=== PATIENT | female | born 1940 | race Caucasian/White ===

== ENCOUNTER 2018-10-23 07:30 | Emergency (ER) | payer MEDICARE, OTHER ==
--- NOTE | 2018-10-23 07:46 | EDM.PDOC ---
ED HPI GENERAL MEDICAL PROBLEM - General Chief Complaint: Cardiovascular Problem Stated Complaint: SOB Time Seen by Provider: 10/23/18 07:43 - History of Present Illness INITIAL COMMENTS - FREE TEXT/NARRATIVE: HISTORY AND PHYSICAL: History of present illness: Patient is 78-year-old white female with extensive cardiac history including pacemaker and AICD who also has history of significant mitral valve disease for which surgical treatment has been suggested she is in the process of follow-up appointment for further evaluation and consideration. She presents today with concern of shortness of breath this has been progressively worse over last several weeks and was associated with chest tightness which was new this morning 's chest tightness has resolved she continues with her baseline shortness of breath with limited activity due to exertional dyspnea. Review of systems: As per history of present illness and below otherwise all systems reviewed and negative. Past medical history: As per history of present illness and as reviewed below otherwise noncontributory. Surgical history: As per history of present illness and as reviewed below otherwise noncontributory. Social history: No reported history of drug or alcohol abuse. Family history: As per history of present illness and as reviewed below otherwise noncontributory. Physical exam: HEENT: Atraumatic, normocephalic, pupils reactive, negative for conjunctival pallor or scleral icterus, mucous membranes moist, throat clear, neck supple, nontender, trachea midline. Lungs: Slightly diminished basilar crackles noted, breath sounds equal bilaterally, chest nontender. Heart: S1S2, irregular Abdomen: Soft, nondistended, nontender. Negative for masses or hepatosplenomegaly. Negative for costovertebral tenderness. Pelvis: Stable nontender. 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: Deferred. Rectal: Deferred. Extremities: Atraumatic, negative for cords or calf pain. Neurovascular unremarkable. Neuro: Awake, alert, oriented. Cranial nerves II through XII unremarkable. Cerebellum unremarkable. Motor and sensory unremarkable throughout. Exam nonfocal. Diagnostics: CBC CMP troponin PT/INR chest x-ray EKG BNP Therapeutics: IV O2 monitor Impression: #1 chest pain #2 dyspnea #3 history of mitral valve disease Definitive disposition and diagnosis as appropriate pending reevaluation and review of above. - Related Data Allergies Allergy/AdvReac Type Severity Reaction Status Date / Time meperidine HCl [From Demerol] Allergy Itching Verified 10/23/18 07:35 Home Meds: Home Meds Aspirin 81 mg PO DAILY 10/23/18 [History] Calcium Carb/D3/Magnesium/Zinc [Mzdiyxj-Ojx-Gmyg-Vit D] 1 tab PO BID 10/23/18 [ History] Carvedilol [Coreg] 18.75 mg PO BID 10/23/18 [History] Furosemide 40 mg PO DAILY 10/23/18 [History] Insulin Detemir [Levemir Flextouch] 35 units INJECT BEDTIME 10/23/18 [History] Insulin Lispro [Humalog Kwikpen U-100] 5 - 8 units INJECT TID 10/23/18 [History] Telmisartan 20 mg PO DAILY 10/23/18 [History] atorvaSTATin [Lipitor] 40 mg PO DAILY 10/23/18 [History] Past Medical History HEENT History: Reports: Impaired Vision, Other (See Below) Other HEENT History: wears galsses Cardiovascular History: Reports: Arrhythmia Respiratory History: Reports: None Gastrointestinal History: Reports: None 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 History: Reports: 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 Musculoskeletal History: Reports: None Neurological History: Reports: None Psychiatric History: Reports: None Endocrine/Metabolic History: Reports: None Hematologic History: Reports: None Immunologic History: Reports: None Oncologic (Cancer) History: Reports: Non-Hodgkin's Lymphoma Dermatologic History: Reports: None - Infectious Disease History Infectious Disease History: Reports: Chicken Pox, Measles - Past Surgical History Head Surgeries/Procedures: Reports: None HEENT Surgical History: Reports: None Cardiovascular Surgical History: Reports: Pacer Respiratory Surgical History: Reports: None GI Surgical History: Reports: None Female Surgical History: Reports: None Endocrine Surgical History: Reports: None Neurological Surgical History: Reports: None Musculoskeletal Surgical History: Reports: None Oncologic Surgical History: Reports: None Dermatological Surgical History: Reports: None Social & Family History - Family History Family Medical History: Noncontributory - Tobacco Use Smoking Status *Q: Never Smoker Second Hand Smoke Exposure: No - Caffeine Use Caffeine Use: Reports: None - Recreational Drug Use Recreational Drug Use: No ED ROS GENERAL - Review of Systems Review Of Systems: ROS reveals no pertinent complaints other than HPI. ED EXAM, GENERAL - Physical Exam Exam: See Below (See dictation) Course - Vital Signs Last Recorded V/S: Last Vital Signs Temp 36.2 C 10/23/18 07:35 Pulse 80 10/23/18 09:04 Resp 18 10/23/18 09:04 BP 184/77 H 10/23/18 09:04 Pulse Ox 98 10/23/18 09:04 - Orders/Labs/Meds Orders: Active Orders 24 hr Category Date Time Status Cardiac Monitoring [RC] . DIRECTED Care 10/23/18 07:48 Active EKG Documentation Completion [RC] STAT Care 10/23/18 07:48 Active Oxygen Therapy [RC] ASDIRECTED Care 10/23/18 07:48 Active Pulse Oximetry [RC] ASDIRECTED Care 10/23/18 07:48 Active UA RFX BRITTANY AND CULT IF INDIC [URIN] Stat Lab 10/23/18 07:48 Ordered Sodium Chloride 0.9% [Saline Flush] Med 10/23/18 07:48 Active 10 ml FLUSH ASDIRECTED PRN Sodium Chloride 0.9% [Saline Flush] Med 10/23/18 07:48 Active 2.5 ml FLUSH ASDIRECTED PRN Saline Lock Insert [OM.PC] Stat Oth 10/23/18 07:48 Ordered Medication Orders Sodium Chloride (Saline Flush) 10 ml FLUSH ASDIRECTED PRN PRN Reason: Keep Vein Open Sodium Chloride (Saline Flush) 2.5 ml FLUSH ASDIRECTED PRN PRN Reason: Keep Vein Open Labs: Laboratory Tests 10/23/18 10/23/18 10/23/18 Range/Units 07:40 07:40 07:40 WBC 7.47 (4.0-11.0) K/uL RBC 2.81 L (4.30-5.90) M/uL Hgb 8.5 L (12.0-16.0) g/dL Hct 25.6 L (36.0-46.0) % MCV 91.1 (80.0-98.0) fL MCH 30.2 (27.0-32.0) pg MCHC 33.2 (31.0-37.0) g/dL RDW Std Deviation 55.2 (28.0-62.0) fl RDW Coeff of Naida 17 H (11.0-15.0) % Plt Count 199 (150-400) K/uL MPV 9.60 (7.40-12.00) fL Neut % (Auto) 59.2 (48.0-80.0) % Lymph % (Auto) 29.2 (16.0-40.0) % Wilcox % (Auto) 7.4 (0.0-15.0) % Eos % (Auto) 4.1 (0.0-7.0) % Baso % (Auto) 0.1 (0.0-1.5) % Neut # (Auto) 4.4 (1.4-5.7) K/uL Lymph # (Auto) 2.2 (0.6-2.4) K/uL Wilcox # (Auto) 0.6 (0.0-0.8) K/uL Eos # (Auto) 0.3 (0.0-0.7) K/uL Baso # (Auto) 0.0 (0.0-0.1) K/uL Nucleated RBC % 0.0 /100WBC Nucleated RBCs # 0 K/uL Sodium 141 (136-145) mmol/L Potassium 3.8 (3.5-5.1) mmol/L Chloride 104 (98-107) mmol/L Carbon Dioxide 27.4 (21.0-32.0) mmol/L BUN 52 H (7.0-18.0) mg/dL Creatinine 2.4 H (0.6-1.0) mg/dL Est Cr Clr Drug Dosing 16.24 mL/min Estimated GFR (MDRD) 19.6 ml/min Glucose 88 (74-106) mg/dL Calcium 9.7 (8.5-10.1) mg/dL Total Bilirubin 0.6 (0.2-1.0) mg/dL AST 13 L (15-37) IU/L ALT 18 (14-63) IU/L Alkaline Phosphatase 107 (46-116) U/L Troponin I < 0.050 (0.000-0.056) ng/mL B-Natriuretic Peptide 870 H (<100) PG/ML Total Protein 6.7 (6.4-8.2) g/dL Albumin 3.2 L (3.4-5.0) g/dL Globulin 3.5 (2.6-4.0) g/dL Albumin/Globulin Ratio 0.9 (0.9-1.6) Meds: Medications Generic Name Dose Route Start Last Admin Trade Name Freq PRN Reason Stop Dose Admin Sodium Chloride 10 ml 10/23/18 07:48 Saline Flush FLUSH ASDIRECTED PRN Keep Vein Open Sodium Chloride 2.5 ml 10/23/18 07:48 Saline Flush FLUSH ASDIRECTED PRN Keep Vein Open Discontinued Medications Generic Name Dose Route Start Last Admin Trade Name Freq PRN Reason Stop Dose Admin Furosemide 20 mg 10/23/18 07:50 10/23/18 08:03 Lasix IVPUSH 10/23/18 07:51 20 mg NOW ONE Administration Nitroglycerin 1 gm 10/23/18 07:50 10/23/18 08:06 Nitro-Bid 2% TOP 10/23/18 07:51 1 gm ONETIME ONE Administration Departure - Departure Time of Disposition: 09:05 Disposition: DC/Tfer to Acute Hospital 02 Reason for Transfer *Q: Other Condition: Fair Clinical Impression: Chest pain, Dyspnea, Mitral valve disease Referrals: PCP,Unknown [Primary Care Provider] - Forms: ED Department Discharge - My Orders Last 24 Hours: My Active Orders 10/23/18 07:48 Cardiac Monitoring [RC] . DIRECTED EKG Documentation Completion [RC] STAT Oxygen Therapy [RC] ASDIRECTED Pulse Oximetry [RC] ASDIRECTED UA RFX BRITTANY AND CULT IF INDIC [URIN] Stat Sodium Chloride 0.9% [Saline Flush] 10 ml FLUSH ASDIRECTED PRN Sodium Chloride 0.9% [Saline Flush] 2.5 ml FLUSH ASDIRECTED PRN Saline Lock Insert [OM.PC] Stat - Assessment/Plan Last 24 Hours: My Active Orders 10/23/18 07:48 Cardiac Monitoring [RC] . DIRECTED EKG Documentation Completion [RC] STAT Oxygen Therapy [RC] ASDIRECTED Pulse Oximetry [RC] ASDIRECTED UA RFX BRITTANY AND CULT IF INDIC [URIN] Stat Sodium Chloride 0.9% [Saline Flush] 10 ml FLUSH ASDIRECTED PRN Sodium Chloride 0.9% [Saline Flush] 2.5 ml FLUSH ASDIRECTED PRN Saline Lock Insert [OM.PC] Stat
[2018-10-23] MEDS ORDERED: Sodium Chloride 0.9% 2.5 ML Syringe FLUSH PRN (07:48)
[2018-10-23] MEDS ORDERED: Sodium Chloride 0.9% 10 ML Syringe FLUSH PRN (07:48)
[2018-10-23] MEDS ORDERED: Nitroglycerin 2% Oint 1 GM UD Packet TOP ONE (07:50)
[2018-10-23] MEDS ORDERED: Furosemide 40 MG/4 ML VIAL IVPUSH ONE (07:50)
[2018-10-23 08:12] LABS: CHLORIDE,CL 104 mmol/L (98-107); SODIUM,NA 141 mmol/L (136-145)
--- NOTE | 2018-10-23 09:02 | CR ---
INDICATION: Shortness of breath. TECHNIQUE: Portable chest 1 view. COMPARISON: None. FINDINGS: There is a left subclavian dual-chamber AICD in place. The cardiac silhouette is mildly enlarged with pulmonary vascular congestion. Minimal interstitial edema is evident as well. No airspace consolidation is seen. There is a left pleural effusion. IMPRESSION: Vascular congestion with interstitial edema suggesting CHF. Small left pleural effusion. Dictated by Edgar Saleh MD @ Oct 23 2018 8:58AM Signed by Dr. Edgar Saleh @ Oct 23 2018 8:59AM
== END 2018-10-23 10:07 ==
LOC: MW.ED 07:30
DX: I05.9 Rheumatic mitral valve disease, unspecified (principal); R07.9 Chest pain, unspecified; Z88.8 Allergy status to other drugs, medicaments and biological substances; Z79.899 Other long term (current) drug therapy; Z79.82 Long term (current) use of aspirin; Z95.810 Presence of automatic (implantable) cardiac defibrillator
CPT/HCPCS: 36415; 71045; 80053; 81001; 83880; 84484; 85025; 93005; 96374; 99285; A9270; J1940

== ENCOUNTER 2018-11-23 13:37 | Emergency (ER) | payer MEDICARE, OTHER ==
[2018-11-23] MEDS ORDERED: Acetaminophen/HYDROcodone 325-5 MG Tab PO ONE (13:56)
--- NOTE | 2018-11-23 14:06 | EDM.PDOC ---
ED HPI GENERAL MEDICAL PROBLEM - General Chief Complaint: Back Pain or Injury Stated Complaint: LOWER BACK PAIN Time Seen by Provider: 11/23/18 13:43 - History of Present Illness INITIAL COMMENTS - FREE TEXT/NARRATIVE: HISTORY AND PHYSICAL: History of present illness: Patient is 78-year-old white female history of multiple myeloma with chronic renal failure who presents with a concern of chronic back pain with acute exacerbation she's has an appointment with her oncologist. She is scheduled for renal dialysis and was concerned about something stronger for pain so she could tolerate the sitting for 4 hours. She denies any numbness weakness or other concern. Review of systems: As per history of present illness and below otherwise all systems reviewed and negative. Past medical history: As per history of present illness and as reviewed below otherwise noncontributory. Surgical history: As per history of present illness and as reviewed below otherwise noncontributory. Social history: No reported history of drug or alcohol abuse. Family history: As per history of present illness and as reviewed below otherwise noncontributory. Physical exam: HEENT: Atraumatic, normocephalic, pupils reactive, negative for conjunctival pallor or scleral icterus, mucous membranes moist, throat clear, neck supple, nontender, trachea midline. Lungs: Clear to auscultation, breath sounds equal bilaterally, chest nontender. Heart: S1S2, regular, negative for clicks, rubs, or JVD. Abdomen: Soft, nondistended, nontender. Negative for masses or hepatosplenomegaly. Negative for costovertebral tenderness. Pelvis: Stable nontender. 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: Deferred. Rectal: Deferred. Extremities: Atraumatic, negative for cords or calf pain. Neurovascular unremarkable. Neuro: Awake, alert, oriented. Cranial nerves II through XII unremarkable. Cerebellum unremarkable. Motor and sensory unremarkable throughout. Exam nonfocal. Back: Patient's without vertebral body or point tenderness motor and sensory rhythm. Extremities are unremarkable Diagnostics: Deferred Therapeutics: [place] 5 mg by mouth Impression: #1 chronic back pain with acute exacerbation #2 history of chronic renal failure #3 history of multiple myeloma Definitive disposition and diagnosis as appropriate pending reevaluation and review of above. Back Pain Score (Numeric/FACES): 10 - Related Data Allergies Allergy/AdvReac Type Severity Reaction Status Date / Time meperidine HCl [From Demerol] Allergy Itching Verified 10/23/18 07:35 Home Meds: Home Meds Aspirin 81 mg PO DAILY 10/23/18 [History] Calcium Carb/D3/Magnesium/Zinc [Czehbsp-Mmv-Jrpe-Vit D] 1 tab PO BID 10/23/18 [ History] Carvedilol [Coreg] 18.75 mg PO BID 10/23/18 [History] Furosemide 40 mg PO DAILY 10/23/18 [History] Insulin Detemir [Levemir Flextouch] 35 units INJECT BEDTIME 10/23/18 [History] Insulin Lispro [Humalog Kwikpen U-100] 5 - 8 units INJECT TID 10/23/18 [History] Telmisartan 20 mg PO DAILY 10/23/18 [History] atorvaSTATin [Lipitor] 40 mg PO DAILY 10/23/18 [History] Past Medical History HEENT History: Reports: Impaired Vision, Other (See Below) Other HEENT History: wears galsses Cardiovascular History: Reports: Arrhythmia Respiratory History: Reports: None Gastrointestinal History: Reports: None 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 History: Reports: None 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 Musculoskeletal History: Reports: None Neurological History: Reports: None Psychiatric History: Reports: None Endocrine/Metabolic History: Reports: None Hematologic History: Reports: None Immunologic History: Reports: None Oncologic (Cancer) History: Reports: Non-Hodgkin's Lymphoma, Other (See Below) Other Oncologic History: possible multiple myeloma Dermatologic History: Reports: None - Infectious Disease History Infectious Disease History: Reports: Chicken Pox, Measles - Past Surgical History Head Surgeries/Procedures: Reports: None HEENT Surgical History: Reports: None Cardiovascular Surgical History: Reports: Pacer Respiratory Surgical History: Reports: None GI Surgical History: Reports: None Female Surgical History: Reports: None Endocrine Surgical History: Reports: None Neurological Surgical History: Reports: None Musculoskeletal Surgical History: Reports: None Oncologic Surgical History: Reports: None Dermatological Surgical History: Reports: None Social & Family History - Family History Family Medical History: Noncontributory - Tobacco Use Smoking Status *Q: Never Smoker - Caffeine Use Caffeine Use: Reports: None - Recreational Drug Use Recreational Drug Use: No ED ROS GENERAL - Review of Systems Review Of Systems: ROS reveals no pertinent complaints other than HPI. ED EXAM, GENERAL - Physical Exam Exam: See Below (See dictation) Course - Vital Signs Last Recorded V/S: Last Vital Signs Temp 36.6 C 11/23/18 13:56 Pulse 83 11/23/18 13:56 Resp 16 11/23/18 13:56 BP 140/48 L 11/23/18 13:56 Pulse Ox 95 11/23/18 13:56 - Orders/Labs/Meds Meds: Medications Discontinued Medications Generic Name Dose Route Start Last Admin Trade Name Basim PRN Reason Stop Dose Admin Hydrocodone Bitart/Acetaminophen 1 tab 11/23/18 13:56 [place] 325-5 Mg PO 11/23/18 13:57 ONETIME ONE Departure - Departure Time of Disposition: 14:05 Disposition: Home, Self-Care 01 Condition: Good Clinical Impression: Chronic back pain, History of multiple myeloma, Chronic renal failure - Discharge Information Referrals: Eduin Reyes MD [Primary Care Provider] - Additional Instructions: The following information is given to patients seen in the emergency department who are being discharged to home. This information is to outline your options for follow-up care. We provide all patients seen in our emergency department with a follow-up referral. The need for follow-up, as well as the timing and circumstances, are variable depending upon the specifics of your emergency department visit. If you don't have a primary care physician on staff, we will provide you with a referral. We always advise you to contact your personal physician following an emergency department visit to inform them of the circumstance of the visit and for follow-up with them and/or the need for any referrals to a consulting specialist. The emergency department will also refer you to a specialist when appropriate. This referral assures that you have the opportunity for followup care with a specialist. All of these measure are taken in an effort to provide you with optimal care, which includes your followup. Under all circumstances we always encourage you to contact your private physician who remains a resource for coordinating your care. When calling for followup care, please make the office aware that this follow-up is from your recent emergency room visit. If for any reason you are refused follow-up, please contact the [facility] emergency department at and asked to speak to the emergency department charge nurse. Follow-up as scheduled dialysis as scheduled [place] as prescribed and return as needed as discussed
== END 2018-11-23 14:42 | disposition home or self-care (01) ==
LOC: MW.ED 13:37
DX: M54.5 Low back pain (principal); G89.29 Other chronic pain; N18.9 Chronic kidney disease, unspecified; Z79.82 Long term (current) use of aspirin; Z79.4 Long term (current) use of insulin; Z88.5 Allergy status to narcotic agent; Z85.79 Personal history of other malignant neoplasms of lymphoid, hematopoietic and related tissues
CPT/HCPCS: 99283; A9270

== ENCOUNTER 2018-12-09 16:32 | Emergency (ER) | payer MEDICARE, OTHER ==
[2018-12-09] MEDS ORDERED: Sodium Chloride 0.9% 2.5 ML Syringe FLUSH PRN (16:33)
[2018-12-09] MEDS ORDERED: Sodium Chloride 0.9% 10 ML Syringe FLUSH PRN (16:33)
--- NOTE | 2018-12-09 17:12 | EDM.PDOC ---
ED HPI GENERAL MEDICAL PROBLEM - General Chief Complaint: Chest Pain Stated Complaint: CHEST PAINS/SOB Time Seen by Provider: 12/09/18 16:33 Source of Information: Reports: Patient History Limitations: Reports: No Limitations - History of Present Illness INITIAL COMMENTS - FREE TEXT/NARRATIVE: HISTORY AND PHYSICAL: History of present illness: Patient is a 78-year-old female presents to the ED today with concern of chest pain episode. Patient states she was in dialysis when she began to experience a sharp sensation in her chest that lasted a few seconds. She stated this occurred 2 different times. Following the first. She states she has not had any episodes since dialysis. Currently in the ED she denies chest pain. She states that when the sharp sensation that occurs she had some shortness of breath but that quickly subsided but the chest pain. Patient is on immunosuppression medications and chemotherapy. Patient denies fever, chills, or cough. Denies headache, neck stiff ness, change in vision, syncope, or near syncope. Denies nausea, vomiting, abdominal pain, diarrhea, constipation, or dysuria. Has not noted any blood in urine or stool. Patient has been eating and drinking appropriately. Patient has a history of multiple myeloma of the kidneys and spine, congestive heart failure s /p pacemaker, mitral valve regurgitation, anemia, and end-stage renal disease. Review of systems: As per history of present illness and below otherwise all systems reviewed and negative. Past medical history: As per history of present illness and as reviewed below otherwise noncontributory. Surgical history: As per history of present illness and as reviewed below otherwise noncontributory. Social history: See social history for further information Family history: As per history of present illness and as reviewed below otherwise noncontributory. Physical exam: General: Patient is alert, oriented, and in no acute distress. She is laying comfortably on exam table. HEENT: Atraumatic, normocephalic, pupils equal and reactive bilaterally, negative for conjunctival pallor or scleral icterus, mucous membranes moist, TMs normal bilaterally, throat clear, neck supple, nontender, trachea midline. No drooling or trismus noted. No meningeal signs. No hot potato voice noted. Lungs: Clear to auscultation, breath sounds equal bilaterally, chest nontender. Heart: S1S2, regular rate and rhythm with a grade 3 systolic ejection murmur best heard at the RUSB. Abdomen: Obese, soft, nondistended, nontender. Negative for masses or hepatosplenomegaly. Negative for costovertebral tenderness. Pelvis: Stable nontender. 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: Deferred. Rectal: Deferred. Skin: Intact, warm, dry. No lesions or rashes noted. Extremities: Atraumatic, negative for cords or calf pain. Neurovascular unremarkable. Neuro: Awake, alert, oriented. Cranial nerves II through XII unremarkable. Cerebellum unremarkable. Motor and sensory unremarkable throughout. Exam nonfocal. Notes: Dr. Roberson directly involved in patients care. Patient does not make urine so unable to get a UA or urine culture today. Chest x-ray shows no acute cardiopulmonary process. 18:45 Discussed transfer for chest pain observation and leukocytosis and family and patient are unsure at this time about transfer 19:00: Patient and family desire transfer to [facility]. Currently, hospital's one call line is busy. [facility] transfer. Will continue to monitor patient. 20:00: EMS arrived and patient transferred Diagnostics: CBC, CMP, UA, EKG, chest x-ray, troponin, bnp, blood cultures x 2, lactate Therapeutics: Saline lock, Rocephin Impression: Chest pain Leukocytosis with bandemia h/o end stage renal disease h/o anemia Plan: Transfer to [facility] Dr. Juan Ramon Bernal Definitive disposition and diagnosis as appropriate pending reevaluation and review of above. chest area Pain Score (Numeric/FACES): 1 - Related Data Allergies Allergy/AdvReac Type Severity Reaction Status Date / Time meperidine HCl [From Demerol] Allergy Itching Verified 12/09/18 16:40 Home Meds: Home Meds Aspirin 81 mg PO DAILY 10/23/18 [History] Calcium Carb/D3/Magnesium/Zinc [Ocwfmcf-Ere-Cstc-Vit D] 1 tab PO BID 10/23/18 [ History] Carvedilol [Coreg] 18.75 mg PO BID 10/23/18 [History] Furosemide 40 mg PO DAILY 10/23/18 [History] Insulin Detemir [Levemir Flextouch] 35 units INJECT BEDTIME 10/23/18 [History] Insulin Lispro [Humalog Kwikpen U-100] 5 - 8 units INJECT TID 10/23/18 [History] Telmisartan 20 mg PO DAILY 10/23/18 [History] atorvaSTATin [Lipitor] 40 mg PO DAILY 10/23/18 [History] Past Medical History HEENT History: Reports: Impaired Vision, Other (See Below) Other HEENT History: wears galsses Cardiovascular History: Reports: Arrhythmia Respiratory History: Reports: None Gastrointestinal History: Reports: None 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 History: Reports: None 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 Musculoskeletal History: Reports: None, Other (See Below) Neurological History: Reports: None Psychiatric History: Reports: None Endocrine/Metabolic History: Reports: None Hematologic History: Reports: None Immunologic History: Reports: None Oncologic (Cancer) History: Reports: Non-Hodgkin's Lymphoma, Other (See Below) Other Oncologic History: possible multiple myeloma Dermatologic History: Reports: None - Infectious Disease History Infectious Disease History: Reports: Chicken Pox - Past Surgical History Head Surgeries/Procedures: Reports: None HEENT Surgical History: Reports: None Cardiovascular Surgical History: Reports: Pacer Respiratory Surgical History: Reports: None GI Surgical History: Reports: None Female Surgical History: Reports: None Endocrine Surgical History: Reports: None Neurological Surgical History: Reports: None Musculoskeletal Surgical History: Reports: None Oncologic Surgical History: Reports: None Dermatological Surgical History: Reports: None Social & Family History - Family History Family Medical History: Noncontributory - Tobacco Use Smoking Status *Q: Never Smoker - Caffeine Use Caffeine Use: Reports: Coffee - Recreational Drug Use Recreational Drug Use: No ED ROS GENERAL - Review of Systems Review Of Systems: ROS reveals no pertinent complaints other than HPI. ED EXAM, GENERAL - Physical Exam Exam: See Below (see dictation) Course - Vital Signs Last Recorded V/S: Last Vital Signs Temp 36.9 C 12/09/18 19:22 Pulse 90 12/09/18 19:22 Resp 18 12/09/18 19:22 BP 113/51 L 12/09/18 19:22 Pulse Ox 93 L 12/09/18 19:22 - Orders/Labs/Meds Labs: Laboratory Tests 12/09/18 12/09/18 12/09/18 Range/Units 17:03 17:03 17:03 WBC 14.51 H (4.0-11.0) K/uL RBC 3.53 L (4.30-5.90) M/uL Hgb 10.5 L (12.0-16.0) g/dL Hct 30.9 L (36.0-46.0) % MCV 87.5 (80.0-98.0) fL MCH 29.7 (27.0-32.0) pg MCHC 34.0 (31.0-37.0) g/dL RDW Std Deviation 56.2 (28.0-62.0) fl RDW Coeff of Naida 18 H (11.0-15.0) % Plt Count 194 (150-400) K/uL MPV 10.00 (7.40-12.00) fL Add Manual Diff YES Neutrophils % (Manual) 77 (48.0-80.0) % Lymphocytes % (Manual) 19 (16.0-40.0) % Monocytes % (Manual) 4 (0.0-15.0) % Nucleated RBC % 0.0 /100WBC Absolute Seg Neuts 11.2 H (1.4-5.7) Lymphocytes # (Manual) 2.8 H (0.6-2.4) Monocytes # (Manual) 0.6 (0.0-0.8) Nucleated RBCs # 0 K/uL Lactate (0.20-2.00) mmol/L Sodium 134 L (136-145) mmol/L Potassium 4.1 (3.5-5.1) mmol/L Chloride 94 L (98-107) mmol/L Carbon Dioxide 27.7 (21.0-32.0) mmol/L BUN 15 (7.0-18.0) mg/dL Creatinine 2.4 H (0.6-1.0) mg/dL Est Cr Clr Drug Dosing 16.24 mL/min Estimated GFR (MDRD) 19.6 ml/min Glucose 229 H (74-106) mg/dL Calcium 8.5 (8.5-10.1) mg/dL Total Bilirubin 0.5 (0.2-1.0) mg/dL AST 20 (15-37) IU/L ALT 27 (14-63) IU/L Alkaline Phosphatase 217 H (46-116) U/L Troponin I 0.053 (0.000-0.056) ng/mL B-Natriuretic Peptide 630 H (<100) PG/ML Total Protein 6.1 L (6.4-8.2) g/dL Albumin 2.4 L (3.4-5.0) g/dL Globulin 3.7 (2.6-4.0) g/dL Albumin/Globulin Ratio 0.7 L (0.9-1.6) 12/09/18 Range/Units 18:55 WBC (4.0-11.0) K/uL RBC (4.30-5.90) M/uL Hgb (12.0-16.0) g/dL Hct (36.0-46.0) % MCV (80.0-98.0) fL MCH (27.0-32.0) pg MCHC (31.0-37.0) g/dL RDW Std Deviation (28.0-62.0) fl RDW Coeff of Naida (11.0-15.0) % Plt Count (150-400) K/uL MPV (7.40-12.00) fL Add Manual Diff Neutrophils % (Manual) (48.0-80.0) % Lymphocytes % (Manual) (16.0-40.0) % Monocytes % (Manual) (0.0-15.0) % Nucleated RBC % /100WBC Absolute Seg Neuts (1.4-5.7) Lymphocytes # (Manual) (0.6-2.4) Monocytes # (Manual) (0.0-0.8) Nucleated RBCs # K/uL Lactate 1.3 (0.20-2.00) mmol/L Sodium (136-145) mmol/L Potassium (3.5-5.1) mmol/L Chloride (98-107) mmol/L Carbon Dioxide (21.0-32.0) mmol/L BUN (7.0-18.0) mg/dL Creatinine (0.6-1.0) mg/dL Est Cr Clr Drug Dosing mL/min Estimated GFR (MDRD) ml/min Glucose (74-106) mg/dL Calcium (8.5-10.1) mg/dL Total Bilirubin (0.2-1.0) mg/dL AST (15-37) IU/L ALT (14-63) IU/L Alkaline Phosphatase (46-116) U/L Troponin I (0.000-0.056) ng/mL B-Natriuretic Peptide (<100) PG/ML Total Protein (6.4-8.2) g/dL Albumin (3.4-5.0) g/dL Globulin (2.6-4.0) g/dL Albumin/Globulin Ratio (0.9-1.6) Meds: Medications Discontinued Medications Generic Name Dose Route Start Last Admin Trade Name Freq PRN Reason Stop Dose Admin Ceftriaxone Sodium/Dextrose 1 50 mls @ 100 mls/hr 12/09/18 18:39 12/09/18 19: 17 gm/ Premix IV 12/09/18 19:08 100 mls/hr ONETIME ONE Administration Sodium Chloride 10 ml 12/09/18 16:33 Saline Flush FLUSH ASDIRECTED PRN Keep Vein Open Sodium Chloride 2.5 ml 12/09/18 16:33 Saline Flush FLUSH ASDIRECTED PRN Keep Vein Open Departure - Departure Time of Disposition: 19:57 Disposition: DC/Tfer to Acute Hospital 02 Reason for Transfer *Q: Primary PCI Indicated Condition: Fair Clinical Impression: End stage renal disease, History of anemia Chest pain Qualifiers: Chest pain type: unspecified Qualified Code(s): R07.9 - Chest pain, unspecified Leukocytosis Qualifiers: Leukocytosis type: bandemia Qualified Code(s): D72.825 - Bandemia Referrals: Eduin Reyes MD [Primary Care Provider] - Forms: ED Department Discharge
--- NOTE | 2018-12-09 18:09 | CR ---
Indication: Patient with dyspnea. History of myeloma. Leaky valve. Technique: A single AP portable view of the chest was obtained. Comparison: October 23, 2018. Findings: A left-sided AICD is identified. Right infusion catheter is identified. The heart is normal in size. The lungs are clear. No infiltrate or pneumothorax is identified. Impression: No acute cardiopulmonary process. Dictated by Nella Milan MD @ Dec 09 2018 6:07PM Signed by Dr. Nella Milan @ Dec 09 2018 6:08PM
[2018-12-09] MEDS ORDERED: cefTRIAXone 1 GM in Premix Bag 1 BAG IV ONE (18:39)
== END 2018-12-09 21:05 ==
LOC: MW.ED 16:32
DX: R07.9 Chest pain, unspecified (principal); D72.825 Bandemia; I50.9 Heart failure, unspecified; N18.6 End stage renal disease; Z99.2 Dependence on renal dialysis; Z79.899 Other long term (current) drug therapy; Z95.0 Presence of cardiac pacemaker; Z79.4 Long term (current) use of insulin; Z79.82 Long term (current) use of aspirin
CPT/HCPCS: 36415; 71045; 80053; 83605; 83880; 84484; 85025; 87040; 93005; 96365; 99285; J0696; 99283

== ENCOUNTER 2018-12-16 22:39 | Observation (INO) | payer MEDICARE, OTHER ==
[2018-12-16] MEDS ORDERED: Morphine 2 MG/ML Syringe IVPUSH ONE (23:34)
[2018-12-16] MEDS ORDERED: Sodium Chloride 0.9% 2.5 ML Syringe FLUSH PRN (23:34)
[2018-12-16] MEDS ORDERED: Sodium Chloride 0.9% 10 ML Syringe FLUSH PRN (23:34)
--- NOTE | 2018-12-16 23:40 | EDM.PDOC ---
ED HPI GENERAL MEDICAL PROBLEM - General Chief Complaint: Back Pain or Injury Stated Complaint: PT HAS BACK PAIN Time Seen by Provider: 12/16/18 22:59 - History of Present Illness INITIAL COMMENTS - FREE TEXT/NARRATIVE: HISTORY AND PHYSICAL: History of present illness: The patient is a 78-year-old female with a history of multiple myeloma as well as a distant history of large B-cell lymphoma nonischemic cardiomyopathy dyslipidemia A IDC placement coronary artery disease hypertension and chronic renal disease for which she is on dialysis and was followed in our oncology clinic with Dr. Monae for multiple myeloma treatment as well as by Dr. Kitchen for radiation oncology. The patient was seen in the emergency department on November 23 having acute on chronic back pain and was given pain medication and then followed up and had CAT scans of the entire back including cervical thoracic and lumbar spine and a bone survey all performed on November 30 which I have reviewed. The patient had an unusual compression deformity or lesions seen at the superior endplate of L3 and was referred to Dr. Kitchen who saw her in consultation and felt that she would merit radiation therapy of this lesion for pain management. The patient was seen here last week with atypical chest pain and because we cannot do dialysis here she was transferred to [facility]. According to the family at bedside she was there and had multiple interventions and complications including diabetic ketoacidosis and hypotension and was just discharged yesterday, , with pain management of Tubac tablets. When the patient was discharged she had some discomfort but it was manageable and they took her home. All day today she has had persistent back pain in the same location as previously in the lumbar region which is more off to the right side. The Tubac she was given is not managing her pain so she came here via ambulance for reevaluation. The patient says that any movement triggers her pain. The patient does not make urine with her dialysis and has no abdominal complaints such as nausea vomiting abdominal pain and she has no chest pain or shortness of breath. She has generalized weakness and the family is saying that they cannot work with her at home as she cannot get up out of bed and do activities of daily living and they do not have the resources to manage her at home. They're requesting pain management and possible admission to get her pain under better control until she can get radiation treatment of the lesion in her back. The patient is scheduled for dialysis tomorrow here but normally gets it Wednesday and Wednesday. Review of systems: As per history of present illness and below otherwise all systems reviewed and negative. Past medical history: As per history of present illness and as reviewed below otherwise noncontributory. Surgical history: As per history of present illness and as reviewed below otherwise noncontributory. Social history: No reported history of drug or alcohol abuse. Family history: As per history of present illness and as reviewed below otherwise noncontributory. Physical exam: HEENT: Atraumatic, normocephalic, negative for conjunctival pallor or scleral icterus, mucous membranes moist, throat clear, neck supple, nontender, trachea midline. Lungs: Clear to auscultation is diminished breath sounds at the bases, breath sounds equal bilaterally, chest nontender. Permacath is seen at the right upper chest wall and it is clean and dry without erythema Heart: S1S2, regular rate and rhythm no overt murmurs Abdomen: Soft, nondistended, nontender. Negative for masses or hepatosplenomegaly. Negative for costovertebral tenderness. Pelvis: Stable nontender. 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: Deferred. Rectal: Deferred. Extremities: Atraumatic, negative for cords or calf pain. Neurovascular unremarkable. Neuro: Awake, alert, oriented. Cranial nerves II through XII unremarkable. Cerebellum unremarkable. Motor is generalized weakness with upper extremities at 3/5 and proximal lower extremities is a 2/5 but dorsi and plantar flexion is 4/5 and sensory unremarkable throughout. Exam nonfocal. Back: There are no midline step-offs or defects of the thoracic or lumbar spine but there is lumbar spine tenderness appreciated going off to the right side without any lesion soft tissue swelling ecchymosis or step-off appreciated. As to the same region the pain has been in the past Diagnostics: The family and patient are declining any other imaging as she has had multiple tests as described above. CBC CMP Therapeutics: IV placement, morphine I discussed with the family at length our limited options here and they're currently deciding what the best approach would be. They would like pain management here and they would like admission here overnight to get better pain control so that maybe she can become more mobile and have her dialysis tomorrow and come home. They are aware of my concerns that this may not be possible in just a brief overnight admission. After the morphine the patient was feeling improved and we attempted to try to set her up to see if she could transfer and she had significant increase in her pain with movement. I discussed with the family that we cannot admit her here as she needs dialysis tomorrow and we will plan for transfer to [facility] in [place]. 0123: I discussed this case with the hospitalist at [facility] in [place] Dr. Hathaway who accepts the patient for transfer for further management of these problems and dialysis. Impression: Intractable Chronic back pain with L3 lesion, end-stage renal disease on hemodialysis Definitive disposition and diagnosis as appropriate pending reevaluation and review of above. back area Pain Score (Numeric/FACES): 10 - Related Data Allergies Allergy/AdvReac Type Severity Reaction Status Date / Time meperidine HCl [From Demerol] Allergy Itching Verified 12/16/18 22:46 Home Meds: Home Meds Aspirin 81 mg PO DAILY 10/23/18 [History] Calcium Carb/D3/Magnesium/Zinc [Ymqehhu-Wxa-Khae-Vit D] 1 tab PO BID 10/23/18 [ History] Carvedilol [Coreg] 18.75 mg PO BID 10/23/18 [History] Furosemide 40 mg PO DAILY 10/23/18 [History] Insulin Detemir [Levemir Flextouch] 35 units INJECT BEDTIME 10/23/18 [History] Insulin Lispro [Humalog Kwikpen U-100] 5 - 8 units INJECT TID 10/23/18 [History] Telmisartan 20 mg PO DAILY 10/23/18 [History] atorvaSTATin [Lipitor] 40 mg PO DAILY 10/23/18 [History] Past Medical History HEENT History: Reports: Impaired Vision, Other (See Below) Other HEENT History: wears [employer] Cardiovascular History: Reports: Arrhythmia Respiratory History: Reports: None Gastrointestinal History: Reports: None 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 History: Reports: Other (See Below) Other 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 History: Renal Ca. 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: Musculoskeletal History: Reports: Other (See Below) Neurological History: Reports: None Psychiatric History: Reports: None Endocrine/Metabolic History: Reports: Diabetes, Type II Hematologic History: Reports: None Immunologic History: Reports: None Oncologic (Cancer) History: Reports: Non-Hodgkin's Lymphoma, Other (See Below) Other Oncologic History: possible multiple myeloma Dermatologic History: Reports: None - Infectious Disease History Infectious Disease History: Reports: Chicken Pox - Past Surgical History Head Surgeries/Procedures: Reports: None HEENT Surgical History: Reports: None Cardiovascular Surgical History: Reports: Pacer Respiratory Surgical History: Reports: None GI Surgical History: Reports: None Female Surgical History: Reports: None Endocrine Surgical History: Reports: None Neurological Surgical History: Reports: None Musculoskeletal Surgical History: Reports: None Oncologic Surgical History: Reports: None Dermatological Surgical History: Reports: None Social & Family History - Family History Family Medical History: Noncontributory - Tobacco Use Smoking Status *Q: Never Smoker - Caffeine Use Caffeine Use: Reports: Coffee - Recreational Drug Use Recreational Drug Use: No ED ROS GENERAL - Review of Systems Review Of Systems: ROS reveals no pertinent complaints other than HPI. ED EXAM, GENERAL - Physical Exam Exam: See Below (See dictation) Course - Vital Signs Last Recorded V/S: Last Vital Signs Temp 36.1 C 12/16/18 22:47 Pulse 76 12/16/18 23:58 Resp 20 12/16/18 23:58 BP 183/79 H 12/17/18 00:06 Pulse Ox 94 L 12/16/18 23:58 - Orders/Labs/Meds Orders: Active Orders 24 hr Category Date Time Status Sodium Chloride 0.9% [Saline Flush] Med 12/16/18 23:34 Active 10 ml FLUSH ASDIRECTED PRN Sodium Chloride 0.9% [Saline Flush] Med 12/16/18 23:34 Active 2.5 ml FLUSH ASDIRECTED PRN Saline Lock Insert [OM.PC] Stat Oth 12/16/18 23:34 Ordered Medication Orders Sodium Chloride (Saline Flush) 10 ml FLUSH ASDIRECTED PRN PRN Reason: Keep Vein Open Sodium Chloride (Saline Flush) 2.5 ml FLUSH ASDIRECTED PRN PRN Reason: Keep Vein Open Labs: Laboratory Tests 12/16/18 12/16/18 Range/Units 23:50 23:50 WBC 12.18 H (4.0-11.0) K/uL RBC 3.45 L (4.30-5.90) M/uL Hgb 10.2 L (12.0-16.0) g/dL Hct 31.5 L (36.0-46.0) % MCV 91.3 (80.0-98.0) fL MCH 29.6 (27.0-32.0) pg MCHC 32.4 (31.0-37.0) g/dL RDW Std Deviation 59.5 (28.0-62.0) fl RDW Coeff of Naida 19 H (11.0-15.0) % Plt Count 155 (150-400) K/uL MPV 10.70 (7.40-12.00) fL Add Manual Diff YES Neutrophils % (Manual) 80 (48.0-80.0) % Band Neutrophils % 3 % Lymphocytes % (Manual) 14 L (16.0-40.0) % Monocytes % (Manual) 3 (0.0-15.0) % Nucleated RBC % 0.2 /100WBC Absolute Seg Neuts 9.7 H (1.4-5.7) Band Neutrophils # 0.4 Lymphocytes # (Manual) 1.7 (0.6-2.4) Monocytes # (Manual) 0.4 (0.0-0.8) Nucleated RBCs # 0 K/uL Sodium 131 L (136-145) mmol/L Potassium 4.8 (3.5-5.1) mmol/L Chloride 98 (98-107) mmol/L Carbon Dioxide 23.4 (21.0-32.0) mmol/L BUN 35 H (7.0-18.0) mg/dL Creatinine 4.6 H (0.6-1.0) mg/dL Est Cr Clr Drug Dosing 8.47 mL/min Estimated GFR (MDRD) 9.2 ml/min Glucose 146 H (74-106) mg/dL Calcium 8.4 L (8.5-10.1) mg/dL Total Bilirubin 0.3 (0.2-1.0) mg/dL AST 29 (15-37) IU/L ALT 41 (14-63) IU/L Alkaline Phosphatase 135 H (46-116) U/L Total Protein 5.3 L (6.4-8.2) g/dL Albumin 2.4 L (3.4-5.0) g/dL Globulin 2.9 (2.6-4.0) g/dL Albumin/Globulin Ratio 0.8 L (0.9-1.6) Meds: Medications Generic Name Dose Route Start Last Admin Trade Name Freq PRN Reason Stop Dose Admin Sodium Chloride 10 ml 12/16/18 23:34 Saline Flush FLUSH ASDIRECTED PRN Keep Vein Open Sodium Chloride 2.5 ml 12/16/18 23:34 Saline Flush FLUSH ASDIRECTED PRN Keep Vein Open Discontinued Medications Generic Name Dose Route Start Last Admin Trade Name Basim PRN Reason Stop Dose Admin Morphine Sulfate 4 mg 12/16/18 23:34 12/17/18 00:00 Morphine IVPUSH 12/16/18 23:35 4 mg ONETIME ONE Administration Departure - Departure Time of Disposition: 01:27 Disposition: DC/Tfer to Acute Hospital 02 Condition: Good Clinical Impression: Intractable low back pain - Discharge Information Referrals: Eduin Reyes MD [Primary Care Provider] - Forms: ED Department Discharge - My Orders Last 24 Hours: My Active Orders 12/16/18 23:34 Sodium Chloride 0.9% [Saline Flush] 10 ml FLUSH ASDIRECTED PRN Sodium Chloride 0.9% [Saline Flush] 2.5 ml FLUSH ASDIRECTED PRN Saline Lock Insert [OM.PC] Stat - Assessment/Plan Last 24 Hours: My Active Orders 12/16/18 23:34 Sodium Chloride 0.9% [Saline Flush] 10 ml FLUSH ASDIRECTED PRN Sodium Chloride 0.9% [Saline Flush] 2.5 ml FLUSH ASDIRECTED PRN Saline Lock Insert [OM.PC] Stat
[2018-12-17] MEDS ORDERED: Morphine 2 MG/ML Syringe IVPUSH ONE (01:30)
[2018-12-17] MEDS ORDERED: Morphine 2 MG/ML Syringe IVPUSH PRN (04:22)
== END 2018-12-17 10:10 ==
LOC: MW.ED 22:39 → MW.MS 12-17 02:12
PROVIDERS: ADMIT Internal Medicine; ATTEND Internal Medicine
DX: G89.29 Other chronic pain (principal); G95.89 Other specified diseases of spinal cord; E78.5 Hyperlipidemia, unspecified; I42.8 Other cardiomyopathies; I25.10 Atherosclerotic heart disease of native coronary artery without angina pectoris; I12.0 Hypertensive chronic kidney disease with stage 5 chronic kidney disease or end stage renal disease; E11.22 Type 2 diabetes mellitus with diabetic chronic kidney disease; N18.6 End stage renal disease; Z99.2 Dependence on renal dialysis; Z79.82 Long term (current) use of aspirin; Z79.4 Long term (current) use of insulin; Z79.899 Other long term (current) drug therapy
CPT/HCPCS: 80053; 85025; 96374; 96376; 99284; 99284-25; G0378; J2270

== ENCOUNTER 2019-01-15 23:57 | Emergency (ER) | payer MEDICARE, OTHER ==
[2019-01-16] MEDS ORDERED: Sodium Chloride 0.9% 10 ML Syringe FLUSH PRN (00:43)
[2019-01-16] MEDS ORDERED: Sodium Chloride 0.9% 2.5 ML Syringe FLUSH PRN (00:43)
[2019-01-16] MEDS ORDERED: Sodium Chloride 0.9% 250 ML IV SCH (00:45)
--- NOTE | 2019-01-16 00:51 | EDM.PDOC ---
ED HPI GENERAL MEDICAL PROBLEM - General Chief Complaint: General Stated Complaint: PRESSURE IN EARS AN HEAD Time Seen by Provider: 01/16/19 00:34 - History of Present Illness INITIAL COMMENTS - FREE TEXT/NARRATIVE: HISTORY AND PHYSICAL: History of present illness: The patient is a 78-year-old female who is well known to me as I've seen her before for intractable back pain who also is on hemodialysis and gets dialysis here as an outpatient Wednesday and Wednesday and had her last run on Wednesday , and he was also followed in our oncology clinic for multiple myeloma with metastasis to bones and kidneys and her last chemotherapy was received on ; the daughters brought the patient in from home due to altered level of consciousness and confusion that started on night after her chemotherapy. The daughter stated that she is just sitting with her eyes closed and he is seeing things that aren't there and is very confused. She is complaining of a headache that is going across the top of her head and wheezing- like action. She's not had fevers chills chest pain or shortness of breath no abdominal pain or vomiting. The patient currently is on chronic pain management including a fentanyl patch Dilaudid for breakthrough pain and dexamethasone. The patient follows at [facility] with Dr. Reyes and is scheduled to see him this week. The patient is scheduled for dialysis tomorrow and the daughters are aware that we are unable to do inpatient dialysis if the patient needs admission. They're concerned about her change in mental status and have also mentioned that maybe it's due to her pain medication. Her pain medication has not been changed recently. The daughter stated that she is mostly just sitting with her eyes closed and sleeping and has told him that it is better for her eyes to be closed as she is having difficulty focusing her vision. The patient has not been eating and drinking as much. The patient does not make much urine with her dialysis. Review of systems: As per history of present illness and below otherwise all systems reviewed and negative. Past medical history: As per history of present illness and as reviewed below otherwise noncontributory. Surgical history: As per history of present illness and as reviewed below otherwise noncontributory. Social history: No reported history of drug or alcohol abuse. Family history: As per history of present illness and as reviewed below otherwise noncontributory. Physical exam: General: Well-developed well-nourished female who is nontoxic and vital signs are noted by me. The patient follows commands easily and is soft-spoken. HEENT: Atraumatic, normocephalic, pupils reactive, negative for conjunctival pallor or scleral icterus, mucous membranes moist, throat clear, neck supple, nontender, trachea midline. There is no thyromegaly but there is some tenderness when I palpate across her scalp in the frontal area without defects deformities or sinus tenderness. Lungs: Clear to auscultation, breath sounds equal bilaterally, chest nontender. The patient has a permacath for dialysis in the right chest wall. Heart: S1S2, regular, negative for clicks, rubs, or JVD. Abdomen: Soft, nondistended, nontender. Negative for masses or hepatosplenomegaly. Negative for costovertebral tenderness. Patient has some old bruising on her abdomen due to prior injections from a prior admission. Pelvis: Stable nontender. 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: Deferred. Rectal: Deferred. Extremities: Atraumatic, negative for cords or calf pain. There are no palpable defects or deformities or tenderness of her extremities and there is pedal edema 1+ bilaterally without tenderness or leg asymmetry Neurovascular unremarkable. Neuro: Awake, alert, and following commands and answering simple questions in the soft-spoken voice. Cranial nerves II through XII unremarkable. Cerebellum unremarkable. Motor is diminished 3/5 throughout and sensory unremarkable throughout. Exam nonfocal. Diagnostics: CBC CMP TSH EKG CT scan of the head ammonia level Therapeutics: IV O2 monitor gentle IV fluids I discussed with the daughters at bedside that we can admit her here for further workup and care of this altered mental status and we would need to transfer her [place]. They state understanding. 0320: Case was discussed with the hospitalist at [facility] in [place], Dr. Hathaway and he accepts the patient for transfer. He would like another 500 mL bolus to be given and a rate of 70 mL per hour. We will organize transfer Impression: Altered mental status with recent chemotherapy and dialysis stable Definitive disposition and diagnosis as appropriate pending reevaluation and review of above. - Related Data Allergies Allergy/AdvReac Type Severity Reaction Status Date / Time meperidine HCl [From Demerol] Allergy Itching Verified 01/16/19 00:12 Home Meds: Home Meds Aspirin 81 mg PO DAILY 10/23/18 [History] Carvedilol [Coreg] 12.5 mg PO BID 10/23/18 [History] Insulin Detemir [Levemir Flextouch] 35 units INJECT BEDTIME 10/23/18 [History] Insulin Lispro [Humalog Kwikpen U-100] 5 - 8 units INJECT TID 10/23/18 [History] atorvaSTATin [Lipitor] 40 mg PO DAILY 10/23/18 [History] Acyclovir 400 mg PO WEEKLY 01/16/19 [History] Allopurinol [Zyloprim] 100 mg PO DAILY 01/16/19 [History] Cyclophosphamide 50 mg PO WEEKLY 01/16/19 [History] Dexamethasone 2 mg PO DAILY 01/16/19 [History] HYDROmorphone [Dilaudid] 4 mg PO PRN 01/16/19 [History] Omeprazole 20 mg PO DAILY 01/16/19 [History] fentaNYL [Fentanyl] 1 each TD PRN 01/16/19 [History] Past Medical History HEENT History: Reports: Impaired Vision, Other (See Below) Other HEENT History: wears galsses Cardiovascular History: Reports: Arrhythmia Respiratory History: Reports: None Gastrointestinal History: Reports: None 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 History: Reports: Other (See Below) Other 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 History: Renal Ca. 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: Musculoskeletal History: Reports: None Neurological History: Reports: None Psychiatric History: Reports: None Endocrine/Metabolic History: Reports: Diabetes, Type II Hematologic History: Reports: None Immunologic History: Reports: None Oncologic (Cancer) History: Reports: Non-Hodgkin's Lymphoma, Other (See Below) Other Oncologic History: possible multiple myeloma Dermatologic History: Reports: None - Infectious Disease History Infectious Disease History: Reports: Chicken Pox - Past Surgical History Head Surgeries/Procedures: Reports: None HEENT Surgical History: Reports: None Cardiovascular Surgical History: Reports: Pacer Respiratory Surgical History: Reports: None GI Surgical History: Reports: None Female Surgical History: Reports: None Endocrine Surgical History: Reports: None Neurological Surgical History: Reports: None Musculoskeletal Surgical History: Reports: None Oncologic Surgical History: Reports: None Dermatological Surgical History: Reports: None Social & Family History - Family History Family Medical History: Noncontributory - Tobacco Use Smoking Status *Q: Never Smoker Second Hand Smoke Exposure: No - Caffeine Use Caffeine Use: Reports: None - Recreational Drug Use Recreational Drug Use: No ED ROS GENERAL - Review of Systems Review Of Systems: ROS reveals no pertinent complaints other than HPI. ED EXAM, GENERAL - Physical Exam Exam: See Below (See dictation) Course - Vital Signs Last Recorded V/S: Last Vital Signs Temp 36.6 C 01/16/19 00:18 Pulse 87 01/16/19 03:22 Resp 16 01/16/19 03:22 BP 129/70 01/16/19 03:22 Pulse Ox 99 01/16/19 03:22 - Orders/Labs/Meds Orders: Active Orders 24 hr Category Date Time Status Cardiac Monitoring [RC] . DIRECTED Care 01/16/19 00:46 Active EKG Documentation Completion [RC] STAT Care 01/16/19 00:46 Active Oxygen Therapy, ED [RC] ASDIRECTED Care 01/16/19 00:46 Active Pulse Oximetry [RC] ASDIRECTED Care 01/16/19 00:46 Active Sodium Chloride 0.9% [Normal Saline] 1,000 ml Med 01/16/19 03:30 Ordered IV ASDIRECTED Sodium Chloride 0.9% [Normal Saline] 250 ml Med 01/16/19 00:45 Active IV STAT Sodium Chloride 0.9% [Saline Flush] Med 01/16/19 00:43 Active 10 ml FLUSH ASDIRECTED PRN Sodium Chloride 0.9% [Saline Flush] Med 01/16/19 00:43 Active 2.5 ml FLUSH ASDIRECTED PRN Saline Lock Insert [OM.PC] Stat Oth 01/16/19 00:43 Ordered Medication Orders Sodium Chloride (Normal Saline) 250 mls @ 999 mls/hr IV STAT KEN Last Admin: 01/16/19 01:06 Dose: 999 mls/hr Sodium Chloride (Saline Flush) 10 ml FLUSH ASDIRECTED PRN PRN Reason: Keep Vein Open Sodium Chloride (Saline Flush) 2.5 ml FLUSH ASDIRECTED PRN PRN Reason: Keep Vein Open Labs: Laboratory Tests 01/16/19 01/16/19 01/16/19 Range/Units 01:05 01:05 01:05 WBC 2.82 L (4.0-11.0) K/uL RBC 2.68 L (4.30-5.90) M/uL Hgb 7.8 L (12.0-16.0) g/dL Hct 24.1 L (36.0-46.0) % MCV 89.9 (80.0-98.0) fL MCH 29.1 (27.0-32.0) pg MCHC 32.4 (31.0-37.0) g/dL RDW Std Deviation 56.1 (28.0-62.0) fl RDW Coeff of Naida 18 H (11.0-15.0) % Plt Count 65 L (150-400) K/uL MPV 11.20 (7.40-12.00) fL Neut % (Auto) 79.4 (48.0-80.0) % Lymph % (Auto) 12.4 L (16.0-40.0) % [place] % (Auto) 7.1 (0.0-15.0) % Eos % (Auto) 0.7 (0.0-7.0) % Baso % (Auto) 0.4 (0.0-1.5) % Neut # (Auto) 2.2 (1.4-5.7) K/uL Lymph # (Auto) 0.4 L (0.6-2.4) K/uL [place] # (Auto) 0.2 (0.0-0.8) K/uL Eos # (Auto) 0.0 (0.0-0.7) K/uL Baso # (Auto) 0.0 (0.0-0.1) K/uL Sodium 133 L (136-145) mmol/L Potassium 4.0 (3.5-5.1) mmol/L Chloride 96 L (98-107) mmol/L Carbon Dioxide 27.4 (21.0-32.0) mmol/L BUN 34 H (7.0-18.0) mg/dL Creatinine 3.8 H (0.6-1.0) mg/dL Est Cr Clr Drug Dosing 10.26 mL/min Estimated GFR (MDRD) 11.5 ml/min Glucose 81 (74-106) mg/dL Calcium 8.0 L (8.5-10.1) mg/dL Total Bilirubin 3.1 H (0.2-1.0) mg/dL AST 102 H (15-37) IU/L ALT 98 H (14-63) IU/L Alkaline Phosphatase 624 H (46-116) U/L Ammonia 11 L (19-54) ug/dL Total Protein 4.8 L (6.4-8.2) g/dL Albumin 2.3 L (3.4-5.0) g/dL Globulin 2.5 L (2.6-4.0) g/dL Albumin/Globulin Ratio 0.9 (0.9-1.6) TSH 3rd Generation 1.56 (0.36-3.74) uIU/mL Meds: Medications Generic Name Dose Route Start Last Admin Trade Name Freq PRN Reason Stop Dose Admin Sodium Chloride 250 mls @ 999 mls/hr 01/16/19 00:45 01/16/19 01:06 Normal Saline IV 999 mls/hr STAT KEN Administration Sodium Chloride 10 ml 01/16/19 00:43 Saline Flush FLUSH ASDIRECTED PRN Keep Vein Open Sodium Chloride 2.5 ml 01/16/19 00:43 Saline Flush FLUSH ASDIRECTED PRN Keep Vein Open Departure - Departure Time of Disposition: 03:30 Disposition: DC/Tfer to [facility] 02 Condition: Fair Clinical Impression: Dialysis patient Altered mental status, unspecified Qualifiers: Altered mental status type: unspecified Qualified Code(s): R41.82 - Altered mental status, unspecified - Discharge Information Referrals: Eduin Reyes MD [Primary Care Provider] - Forms: ED Department Discharge - My Orders Last 24 Hours: My Active Orders 01/16/19 00:43 Sodium Chloride 0.9% [Saline Flush] 10 ml FLUSH ASDIRECTED PRN Sodium Chloride 0.9% [Saline Flush] 2.5 ml FLUSH ASDIRECTED PRN Saline Lock Insert [OM.PC] Stat 01/16/19 00:45 Sodium Chloride 0.9% [Normal Saline] 250 ml IV STAT 01/16/19 00:46 Cardiac Monitoring [RC] . DIRECTED EKG Documentation Completion [RC] STAT Oxygen Therapy, ED [RC] ASDIRECTED Pulse Oximetry [RC] ASDIRECTED 01/16/19 03:30 Sodium Chloride 0.9% [Normal Saline] 1,000 ml IV ASDIRECTED - Assessment/Plan Last 24 Hours: My Active Orders 01/16/19 00:43 Sodium Chloride 0.9% [Saline Flush] 10 ml FLUSH ASDIRECTED PRN Sodium Chloride 0.9% [Saline Flush] 2.5 ml FLUSH ASDIRECTED PRN Saline Lock Insert [OM.PC] Stat 01/16/19 00:45 Sodium Chloride 0.9% [Normal Saline] 250 ml IV STAT 01/16/19 00:46 Cardiac Monitoring [RC] . DIRECTED EKG Documentation Completion [RC] STAT Oxygen Therapy, ED [RC] ASDIRECTED Pulse Oximetry [RC] ASDIRECTED 01/16/19 03:30 Sodium Chloride 0.9% [Normal Saline] 1,000 ml IV ASDIRECTED
--- NOTE | 2019-01-16 01:46 | CT ---
INDICATION: Altered mental status TECHNIQUE: CT head without contrast. COMPARISON: None. FINDINGS: CSF spaces: Within normal limits for age. Brain parenchyma: Mason-white differentiation is distinct. No intracranial bleed or mass effect. Skull base and calvarium: The visualized paranasal sinuses and mastoid air cells demonstrate no acute or significant findings. The visualized orbits are grossly unremarkable. No skull fractures. Atherosclerosis. IMPRESSION: Unremarkable noncontrast head CT. Please note that all CT scans at this facility use dose modulation, iterative reconstruction, and/or weight-based dosing when appropriate to reduce radiation dose to as low as reasonably achievable. Dictated by Hugo Russ MD @ Jan 16 2019 1:41AM Signed by Dr. Hugo Russ @ Jan 16 2019 1:43AM
[2019-01-16] MEDS ORDERED: Sodium Chloride 0.9% 1,000 ML IV SCH (03:30)
== END 2019-01-16 04:32 ==
LOC: MW.ED 23:57
DX: R41.82 Altered mental status, unspecified (principal); E11.9 Type 2 diabetes mellitus without complications; C90.00 Multiple myeloma not having achieved remission; C79.51 Secondary malignant neoplasm of bone; C79.00 Secondary malignant neoplasm of unspecified kidney and renal pelvis; Z99.2 Dependence on renal dialysis; Z79.4 Long term (current) use of insulin; Z88.8 Allergy status to other drugs, medicaments and biological substances; Z79.82 Long term (current) use of aspirin; Z79.899 Other long term (current) drug therapy
CPT/HCPCS: 36415; 70450; 80053; 82140; 84443; 85025; 93005; 96360; 99285; J7040; J7050